=== PATIENT | female | born 1990 | race Caucasian/White ===

== ENCOUNTER 2019-10-12 18:06 | Emergency (ER) | payer OTHER ==
[2019-10-12 18:17] VITALS: BP 105/75; PULSE 68; TEMP 98; BMI 24.6
--- NOTE | 2019-10-12 18:54 | PDOC ---
History of Present Illness - General Chief Complaint: Pain Stated Complaint: HANDS/EVALUATION Time Seen by Provider: 10/12/19 18:17 History Source: Patient - History of Present Illness Occurred: reports: yesterday Pain Location: reports: upper extremity Method of Injury: Yes: direct blow Past History - Past Medical History Allergies/Adverse Reactions: Allergies Allergy/AdvReac Type Severity Reaction Status Date / Time No Known Allergies Allergy Verified 10/12/19 18:16 Home Medications: Ambulatory Orders Metoclopramide HCl [Reglan -] 10 mg PO TID #21 tablet 07/16/16 Nitrofurantoin Monohyd/M-Cryst [Macrobid -] 100 mg PO BID #14 capsule 07/16/16 COPD: No - Immunization History Immunization Up to Date: Yes - Psycho Social/Smoking Cessation Hx Smoking History: Current every day smoker Have you smoked in the past 12 months: No Number of Cigarettes Smoked Daily: 0 Information on smoking cessation initiated: No Hx Alcohol Use: No Drug/Substance Use Hx: No Review of Systems - Review of Systems Musculoskeletal: Yes: Joint Pain, Joint Swelling Integumentary: Yes: Bruising *Physical Exam - Vital Signs Last Vital Signs Temp Pulse Resp BP Pulse Ox 98 F 68 18 105/75 99 10/12/19 18:13 10/12/19 18:13 10/12/19 18:13 10/12/19 18:13 10/12/19 18:13 - Physical Exam General Appearance: Yes: Appropriately Dressed. No: Apparent Distress HEENT: positive: Normal Voice Neck: positive: Supple Extremity: positive: Other (multiple contusions over several MCPs joints of b/l hand, no deformity or sig swelling, FROMI) Integumentary: positive: Dry, Warm Neurologic: positive: Fully Oriented, Alert, Normal Mood/Affect ED Treatment Course - RADIOLOGY Radiology Studies Ordered: Category Date Time Status HAND- LEFT [RAD] Stat Radiology 10/12/19 18:19 Taken HAND- RIGHT [RAD] Stat Radiology 10/12/19 18:19 Taken Medical Decision Making - Medical Decision Making 10/12/19 18:53 28-year-old female, no significant history, here with bilateral hand pain and swelling after punching a wall multiple times yesterday. No sensory changes see exam B/l hand contusions XR neg for fx Dc w/ OTC meds prn pain and ice for swelling Discharge - Discharge Information Problems reviewed: Yes Clinical Impression/Diagnosis: Hand contusion Qualifiers: Encounter type: initial encounter Laterality: unspecified laterality Qualified Code(s): S60.229A - Contusion of unspecified hand, initial encounter Condition: Good Disposition: HOME - Follow up/Referral - Patient Discharge Instructions Patient Printed Discharge Instructions: DI for Contusion - Post Discharge Activity
== END 2019-10-12 19:11 | disposition home or self-care (01) ==
LOC: JERFT 18:06
DX: S60.222A Contusion of left hand, initial encounter (principal); S60.221A Contusion of right hand, initial encounter; W22.09XA Striking against other stationary object, initial encounter; Y93.89 Activity, other specified; Y92.038 Other place in apartment as the place of occurrence of the external cause; Y99.8 Other external cause status; F17.210 Nicotine dependence, cigarettes, uncomplicated
CPT/HCPCS: 73130-TC-LT-FY; 73130-TC-RT-FY; 99281-25

== ENCOUNTER 2020-10-16 19:25 | Emergency (ER) | payer OTHER ==
[2020-10-16 19:44] VITALS: BMI 24.8
[2020-10-16] MEDS ORDERED: LACTATED RINGERS SOLUTION 1000 ML INFUS.BAG IV ONE ×2 (20:39→22:50)
[2020-10-16] MEDS ORDERED: ONDANSETRON 4 MG/2 ML VIAL IVPUSH ONE (20:39)
[2020-10-16] MEDS ORDERED: ONDANSETRON 4 MG/2 ML VIAL ONE (20:54)
[2020-10-16] MEDS ORDERED: FAMOTIDINE 20 MG/50 ML IVPB 20 MG/50 ML MG IVPB ONE ×2 (21:14→21:18)
[2020-10-16] MEDS ORDERED: METOCLOPRAMIDE HCL INJECTION 10 MG/2 ML VIAL IVPUSH ONE (21:25)
[2020-10-16] MEDS ORDERED: METOCLOPRAMIDE HCL INJECTION 10 MG/2 ML VIAL ONE (21:31)
[2020-10-16 21:45] LABS: POTASSIUM 3.5 mmol/L (3.5-5.1)
[2020-10-16 21:47] LABS: BLOOD UREA NITROGEN 14.6 mg/dL (7-18); CALCIUM 9.8 mg/dL (8.5-10.1); MAGNESIUM 1.6 mg/dL (1.8-2.4)
[2020-10-16 21:48] LABS: ALBUMIN 4.4 g/dl (3.4-5.0)
[2020-10-16 21:50] LABS: CREATININE 0.8 mg/dL (0.55-1.3)
[2020-10-16 21:52] LABS: BILIRUBIN,TOTAL 0.6 mg/dL (0.2-1); TOT PROT 7.7 g/dl (6.4-8.2)
[2020-10-16 22:32] LABS: BASO % 0.6 % (0-2.0); HEMATOCRIT 35.5 % (32.4-45.2); HEMOGLOBIN 11.4 GM/dL (10.7-15.3); LYMPH % 4.7 % (8-40); MCH 26.6 pg (25.7-33.7); MCHC 32.1 g/dl (32.0-36.0); MEAN CELL VOLUME 82.9 fl (80-96); MEAN PLT VOLUME 9.9 fl (7.5-11.1); MONO % 4.2 % (3.8-10.2); NEUT % 90.5 % (42.8-82.8); PLATELET COUNT 245 K/MM3 (134-434); RBC 4.29 M/mm3 (3.60-5.2); RDW 14.1 % (11.6-15.6); WHITE BLOOD COUNT 13.8 K/mm3 (4.0-10.0)
[2020-10-16 22:34] LABS: PH,URINE >= 9.0 (5.0-8.0); URINE APPEARANCE CLEAR; URINE BILIRUBIN NEGATIVE (NEGATIVE); URINE COLOR YELLOW; URINE GLUCOSE (UA) 2+ (NEGATIVE); URINE KETONE 3+ (NEGATIVE); URINE LEUK ESTERASE NEGATIVE (NEGATIVE); URINE NITRITE NEGATIVE (NEGATIVE); URINE PROTEIN NEGATIVE (NEGATIVE); URINE UROBILINOGEN 0.2 mg/dL (0.2-1.0)
[2020-10-16 22:40] LABS: OPIATES, URI NEGATIVE ng/ml (CUTOFF=300)
[2020-10-16 22:41] LABS: COCAINE, UR NEGATIVE ng/ml (CUTOFF=300); URINE BARBITURATES NEGATIVE ng/ml (CUTOFF=200)
[2020-10-16] MEDS ORDERED: MAGNESIUM SULF 50% (8.12 MEQ/2 ML-1 GM VIAL) IVPB ONE (22:49)
[2020-10-16 22:50] LABS: METHADONE, UR NEGATIVE ng/ml (CUTOFF=300); PHENCYCLIDINE,URINE NEGATIVE ng/ml (CUTOFF=25); URINE AMPHETAMINES NEGATIVE ng/ml (CUTOFF=500); URINE BENZODIAZEPINES NEGATIVE ng/ml (CUTOFF=200)
[2020-10-16] MEDS ORDERED: LORazepam 2 MG/ML SDV VIAL ONE (23:13)
[2020-10-16] MEDS ORDERED: SODIUM CHLORIDE 0.9% 500 ML INFUS.BAG IV ONE (23:13)
[2020-10-16] MEDS ORDERED: MAGNESIUM SULFATE IN WATER 2 GM/50 ML IVPB IVPB ONE (23:14)
[2020-10-17 01:13] VITALS: BP 125/62; PULSE 109; TEMP 97.3
== END 2020-10-17 01:20 | disposition home or self-care (01) ==
LOC: JER 19:25
PROC: 3E0333Z Introduction of Anti-inflammatory into Peripheral Vein, Percutaneous Approach (ICD-10-PCS; principal; 2020-10-16)
PROC: 3E033GC Introduction of Other Therapeutic Substance into Peripheral Vein, Percutaneous Approach (ICD-10-PCS; 2020-10-16)
PROC: 3E033NZ Introduction of Analgesics, Hypnotics, Sedatives into Peripheral Vein, Percutaneous Approach (ICD-10-PCS; 2020-10-16)
PROC: 3E033GC Introduction of Other Therapeutic Substance into Peripheral Vein, Percutaneous Approach (ICD-10-PCS; 2020-10-16)
PROC: 3E033GC Introduction of Other Therapeutic Substance into Peripheral Vein, Percutaneous Approach (ICD-10-PCS; 2020-10-16)
PROC: 3E033GC Introduction of Other Therapeutic Substance into Peripheral Vein, Percutaneous Approach (ICD-10-PCS; 2020-10-16)
PROC: 3E033GC Introduction of Other Therapeutic Substance into Peripheral Vein, Percutaneous Approach (ICD-10-PCS; 2020-10-16)
PROC: 3E033GC Introduction of Other Therapeutic Substance into Peripheral Vein, Percutaneous Approach (ICD-10-PCS; 2020-10-16)
PROC: 3E0337Z Introduction of Electrolytic and Water Balance Substance into Peripheral Vein, Percutaneous Approach (ICD-10-PCS; 2020-10-16)
PROC: 3E0337Z Introduction of Electrolytic and Water Balance Substance into Peripheral Vein, Percutaneous Approach (ICD-10-PCS; 2020-10-16)
PROC: 3E023GC Introduction of Other Therapeutic Substance into Muscle, Percutaneous Approach (ICD-10-PCS; 2020-10-16)
DX: R11.2 Nausea with vomiting, unspecified (principal); H81.4 Vertigo of central origin
CPT/HCPCS: 36415; 71046-TC-FY; 80053; 80307; 81003; 83735; 84443; 84484; 84703; 85025; 87086; 93005; 93010; 99285-25

== ENCOUNTER 2023-05-29 12:10 | Inpatient (IN) | payer OTHER ==
[2023-05-29 12:18] VITALS: BMI 23.3
[2023-05-29] MEDS ORDERED: FAMOTIDINE 20 MG/50 ML IVPB 20 MG/50 ML MG IVPB ONE ×2 (12:42→12:55)
[2023-05-29 14:33] LABS: BASO % 0.5 % (0-2.0); EOS % 0.3 % (0-4.5); HEMATOCRIT 41.1 % (32.4-45.2); HEMOGLOBIN 12.8 GM/dL (10.7-15.3); MCH 26.2 pg (25.7-33.7); MCHC 31.2 g/dl (32.0-36.0); MONO % 6.7 % (3.8-10.2); NEUT % 74.5 % (42.8-82.8); PLATELET COUNT 327 10^3/uL (134-434); RBC 4.89 M/mm3 (3.60-5.2); RDW 14.4 % (11.6-15.6); WHITE BLOOD COUNT 9.9 K/mm3 (4.0-10.0)
[2023-05-29 14:53] LABS: CALCIUM 10.1 mg/dL (8.5-10.1)
[2023-05-29 14:54] LABS: ALBUMIN 4.6 g/dl (3.4-5.0); BLOOD UREA NITROGEN 13.5 mg/dL (7-18)
[2023-05-29 14:57] LABS: CREATININE 0.6 mg/dL (0.55-1.3)
[2023-05-29 14:58] LABS: BILIRUBIN,TOTAL 0.6 mg/dL (0.2-1)
[2023-05-29] MEDS ORDERED: ALPRAZolam 1 MG TABLET PO PRN (14:58)
[2023-05-29 14:59] LABS: TOT PROT 8.1 g/dl (6.4-8.2)
[2023-05-29] MEDS ORDERED: ALPRAZolam 1 MG TABLET ONE (16:11)
[2023-05-29] MEDS ORDERED: ALPRAZolam 0.25 MG TABLET PO PRN (16:31)
[2023-05-29] MEDS ORDERED: MECLIZINE HCL 25 MG TABLET (FP) PO PRN (16:47)
[2023-05-29 17:08] LABS: INR 1.09 (0.83-1.09); PROTHROMBIN TIME (PATIENT) 12.6 SEC (9.7-13.0)
[2023-05-30 08:07] LABS: EOS % 0.6 % (0-4.5); HEMOGLOBIN 11.7 GM/dL (10.7-15.3); LYMPH % 20.5 % (8-40); MCH 27.1 pg (25.7-33.7); MCHC 33.4 g/dl (32.0-36.0); MEAN CELL VOLUME 81.2 fl (80-96); MEAN PLT VOLUME 8.9 fl (7.5-11.1); MONO % 8.9 % (3.8-10.2); PLATELET COUNT 278 10^3/uL (134-434); RBC 4.31 M/mm3 (3.60-5.2); RDW 14.3 % (11.6-15.6); WHITE BLOOD COUNT 8.1 K/mm3 (4.0-10.0)
[2023-05-30] MEDS ORDERED: ALPRAZolam 1 MG TABLET PO ONE (12:13)
[2023-05-30] MEDS ORDERED: FENTANYL CITRATE/PF 50 MCG/ML VIAL ONE (15:32)
[2023-05-30] MEDS ORDERED: KETOROLAC TROMETHAMINE 15 MG/ML VIAL IVPUSH PRN (17:29)
[2023-05-30] MEDS: ACETAMINOPHEN 1000 MG/100 ML BAG IVPB PRN (21:28)
[2023-05-30] MEDS: ALPRAZolam 1 MG TABLET PO PRN (23:17)
[2023-05-31] MEDS: ACETAMINOPHEN 1000 MG/100 ML BAG IVPB PRN (12:05)
[2023-05-31] MEDS: ALPRAZolam 1 MG TABLET PO PRN (18:38)
[2023-06-01 03:24] VITALS: RESP 18
[2023-06-01] MEDS: ALPRAZolam 1 MG TABLET PO PRN ×2 (11:29→22:23)
[2023-06-01] MEDS ORDERED: LACTATED RINGERS SOLUTION 1,000 ML/1,000 ML INFUS.BAG IV SCH (17:00)
[2023-06-02 15:10] VITALS: BP 101/63; PULSE 71; TEMP 98.1
== END 2023-06-02 17:00 | disposition home or self-care (01) | DRG 201 ==
LOC: JER 12:10 → JERBED 16:24 → UNDOADMOB 16:24 → INTOOBSV 16:24 → JERBED 16:31 → J4W 22:03 → JERBED 22:03 → OBSVTOIN 05-30 15:56
PROVIDERS: ADMIT Internal Medicine; ATTEND Family Medicine
PROC: 0W9B30Z Drainage of Left Pleural Cavity with Drainage Device, Percutaneous Approach (ICD-10-PCS; principal; 2023-05-30)
PROC: 0WPBX0Z Removal of Drainage Device from Left Pleural Cavity, External Approach (ICD-10-PCS; 2023-05-30)
DX: J93.83 Other pneumothorax (principal); F41.9 Anxiety disorder, unspecified; J45.909 Unspecified asthma, uncomplicated; R00.1 Bradycardia, unspecified; I95.1 Orthostatic hypotension
CPT/HCPCS: 32557; 36415; 71045-TC-FY; 71046-TC-FY; 71250-TC; 80053; 82962; 83036; 84443; 84484; 85025; 85610; 93005; 93010; 99285-25; C1729; C1769; G0378

== ENCOUNTER 2023-06-21 11:08 | Emergency (ER) | payer OTHER ==
[2023-06-21 11:17] VITALS: RESP 18; TEMP 98; BMI 21.2
[2023-06-21] MEDS ORDERED: KETOROLAC TROMETHAMINE 15 MG/ML VIAL IVPUSH ONE (12:23)
[2023-06-21] MEDS ORDERED: ACETAMINOPHEN 1000 MG/100 ML BAG IVPB ONE (12:23)
[2023-06-21] MEDS ORDERED: LIDOCAINE 5% TOPICAL PATCH TP ONE (12:24)
[2023-06-21] MEDS ORDERED: LIDOCAINE 5% TOPICAL PATCH ONE (12:32)
[2023-06-21] MEDS ORDERED: ACETAMINOPHEN INJECTION 100 ML IVPB ONE (12:32)
[2023-06-21] MEDS ORDERED: KETOROLAC TROMETHAMINE 15 MG/ML VIAL ONE (12:32)
[2023-06-21 13:08] LABS: BASO % 1.1 % (0-2.0); HEMATOCRIT 34.5 % (32.4-45.2); MCH 28.1 pg (25.7-33.7); MCHC 34.6 g/dl (32.0-36.0); MEAN PLT VOLUME 9.5 fl (7.5-11.1); MONO % 9.5 % (3.8-10.2); NEUT % 46.4 % (42.8-82.8); PLATELET COUNT 250 10^3/uL (134-434); RBC 4.26 M/mm3 (3.60-5.2); RDW 13.4 % (11.6-15.6); WHITE BLOOD COUNT 6.6 K/mm3 (4.0-10.0)
[2023-06-21 13:25] LABS: POTASSIUM 3.9 mmol/L (3.5-5.1)
[2023-06-21 13:27] LABS: CALCIUM 9.3 mg/dL (8.5-10.1)
[2023-06-21 13:28] LABS: ALBUMIN 3.9 g/dl (3.4-5.0); BLOOD UREA NITROGEN 9.2 mg/dL (7-18)
[2023-06-21 13:31] LABS: CREATININE 0.6 mg/dL (0.55-1.3)
[2023-06-21 13:33] LABS: BILIRUBIN,TOTAL 0.4 mg/dL (0.2-1); TOT PROT 6.8 g/dl (6.4-8.2)
[2023-06-21 17:00] VITALS: BP 126/80; PULSE 76
[2023-06-21] MEDS ORDERED: LIDOCAINE PATCH REMOVAL MC ONE (22:00)
== END 2023-06-21 17:00 | disposition home or self-care (01) ==
LOC: JER 11:08
PROC: 3E033NZ Introduction of Analgesics, Hypnotics, Sedatives into Peripheral Vein, Percutaneous Approach (ICD-10-PCS; principal; 2023-06-21)
DX: R07.89 Other chest pain (principal); R07.81 Pleurodynia; M54.9 Dorsalgia, unspecified; R06.02 Shortness of breath
CPT/HCPCS: 36415; 71046-TC-FY; 80053; 84484; 85025; 93005; 93010; 99285-25